=== PATIENT | male | born 1985 ===

== ENCOUNTER 2017-09-17 23:03 | Emergency (ER) | payer MEDICAID ==
[2017-09-18 00:03] LABS: BASO % 0.6 % (0.0-2.0); EOS % 0.8 % (0.0-4.0); HEMATOCRIT 49.2 % (35.0-51.0); LYMPH # 1.6 K/uL (1.0-4.3); LYMPH % 27.3 % (20.0-40.0); MEAN CELL VOLUME 97.8 fl (80.0-94.0); MEAN CORPUSCULAR HEMOGLOBIN 32.6 pg (27.0-31.0); MEAN CORPUSCULAR HGB CONC 33.3 g/dL (33.0-37.0); MEAN PLATELET VOLUME 9.8 fl (7.2-11.7); MONO # 0.5 K/uL (0.0-0.8); MONO % 8.3 % (0.0-10.0); NEUT # 3.7 K/uL (1.8-7.0); NRBC % 0.2 % (0.0-0.0); RED CELL DISTRIBUTION WIDTH 14.5 % (11.5-14.5); WHITE BLOOD COUNT 5.9 K/uL (4.8-10.8)
[2017-09-18 00:12] LABS: PARTIAL THROMBOPLASTIN TIME 31.8 Seconds (25.6-37.1)
[2017-09-18 00:13] LABS: ALB/GLOB RATIO 1.3 (1.0-2.1); ALKALINE PHOSPHATASE 81 U/L (38-126); ALT/SGPT 69 U/L (21-72); AST/SGOT 75 U/L (17-59); BILIRUBIN,TOTAL 0.3 mg/dl (0.2-1.3); BLOOD UREA NITROGEN 5 mg/dl (9-20); CARBON DIOXIDE 26 mmol/L (22-30); CHLORIDE 107 mmol/L (98-107); GFR AFRICAN-AMERICAN > 60; GLUCOSE,RANDOM 108 mg/dL (75-110); POTASSIUM 3.8 MMOL/L (3.6-5.0); SODIUM 149 mmol/l (132-148); TOTAL PROTEIN 8.1 G/DL (6.3-8.2)
[2017-09-18 00:20] LABS: ALCOHOL SERUM 443 mg/dl (0-10)
--- NOTE | 2017-09-18 00:30 | ED PDOC ---
HPI: Psych/Substance Abuse Time Seen by Provider: 09/17/17 23:08 Chief Complaint (Nursing): Substance Abuse Chief Complaint (Provider): Intoxication and Overdose History Per: EMS History/Exam Limitations: intoxication Onset/Duration Of Symptoms: Mins (just prior to arrival) Current Symptoms Are (Timing): Still Present Additional Complaint(s): 32 y/o male, brought in by both [facility] and police, with a past medial history of ADD, alcohol abuse, and heroin abuse, presents to the ED with chief complaint of alcohol intoxication and a drug overdose, with an onset just prior to arrival. According to EMS, patient was brought to the ED after taking 6 tablets of Klonopin 2mg, prescribed to him for anxiety, coupled with alcohol. Any social, surgical, or family history, as well as the review of systems, were unable to be obtained secondary to the patient's inability to answer any of the provider's questions. Of note, the patient was uncooperative and physically aggressive to staff, which resulted on the patient being placed on 4 point restraints. Past Medical History Reviewed: Historical Data, Nursing Documentation, Vital Signs Vital Signs: Last Vital Signs Temp 98.0 F 09/18/17 00:16 Pulse 107 H 09/18/17 00:16 Resp 18 09/18/17 00:16 BP 136/76 09/18/17 00:16 Pulse Ox 100 09/18/17 00:16 - Medical History PMH: Anxiety, Depression Denies: Diabetes, Hepatitis, HIV, HTN, Chronic Kidney Disease, Seizures, Sexually Transmitted Disease Other PMH: ADD - Surgical History Surgical History: No Surg Hx - Family History Family History: States: Unknown Family Hx - Social History Alcohol: > 2 Drinks/Day (alcohol abuse) Drugs: Opiates (Heroin abuse) - Immunization History Hx Tetanus Toxoid Vaccination: No Hx Influenza Vaccination: No Hx Pneumococcal Vaccination: No - Home Medications Home Medications: Ambulatory Orders Medication Instructions Recorded No Known Home Med 02/26/16 - Allergies Allergies/Adverse Reactions: Allergies Allergy/AdvReac Type Severity Reaction Status Date / Time No Known Allergies Allergy Verified 02/26/16 05:49 Review of Systems ROS Statement: Except As Marked, All Systems Reviewed And Found Negative Review Of Systems: ROS cannot be obtained secondary to pt's inabilty to answer questions. Physical Exam - Reviewed Nursing Documentation Reviewed: Yes Vital Signs Reviewed: Yes - Physical Exam Appears: Positive for: Non-toxic, No Acute Distress Head Exam: Positive for: ATRAUMATIC, NORMOCEPHALIC Skin: Positive for: Normal Color, Warm Eye Exam: Positive for: Normal appearance, EOMI, PERRL Neck: Positive for: Normal, Painless ROM, Supple Cardiovascular/Chest: Positive for: Regular Rate, Rhythm. Negative for: Murmur Respiratory: Positive for: Normal Breath Sounds. Negative for: Respiratory Distress Gastrointestinal/Abdominal: Positive for: Normal Exam, Soft. Negative for: Tenderness Back: Positive for: Normal Inspection Extremity: Positive for: Normal ROM. Negative for: Pedal Edema, Deformity Neurologic/Psych: Positive for: Alert, Other (Slurred Speech) - Laboratory Results Result Diagrams: 09/17/17 23:31 09/17/17 23:31 - ECG O2 Sat by Pulse Oximetry: 100 (RA) Pulse Ox Interpretation: Normal Medical Decision Making Medical Decision Making: Time: --23:17 Impression: -- 32 y/o male with Overdose in setting of alcohol abuse Plan: --ECG --drug screen, urine --Poison Control Consult --ED UDip --Haldol 5mg IM --Lorazepam 2mg IM --Heplock Insertion --Accucheck --Restraint: Violent or harm to staff/self --Urinalysis Reassess --time: 07:00 Patient to be signed out to Dr. Burden pending crisis evaluation. Scribe Attestation: Documented by Srini Coyle acting as a scribe for Solomon Rizvi MD. Provider Attestation: All medical record entries made by the Scribe were at my direction and personally dictated by me. I have reviewed the chart and agree that the record accurately reflects my personal performance of the history, physical exam, medical decision making, and the department course for this patient. I have also personally directed, reviewed, and agree with the discharge instructions and disposition. Disposition - Clinical Impression Clinical Impression: Substance abuse - Patient ED Disposition Is Patient to be Admitted: Transfer of Care Doctor Will See Patient In The: ED - Disposition Disposition: Transfer of Care Disposition Time: 07:00 Condition: FAIR Forms: [employer] (Croatian) Patient Signed Over To: Horace Burden
[2017-09-18] MEDS ORDERED: Sodium Chloride 0.9% 1,000 ML IV STA (00:44)
[2017-09-18 07:18] LABS: RBC URINE 1 /hpf (0-3); URINE BACTERIA RARE (<OCC); URINE BILIRUBIN NEGATIVE (NEGATIVE); URINE BLOOD NEGATIVE (NEGATIVE); URINE COLOR YELLOW (YELLOW); URINE GLUCOSE (UA) NEG (Normal); URINE KETONE 20 mg/dL (NEGATIVE); URINE LEUKOCYTE ESTERASE NEG Leu/uL (Negative); URINE PROTEIN NEGATIVE (NEGATIVE); URINE UROBILINOGEN 0.2-1.0 mg/dL (0.2-1.0); WBC URINE 3 /hpf (0-5)
--- NOTE | 2017-09-18 07:18 | ED PDOC ---
- Laboratory Results Result Diagrams: 09/17/17 23:31 09/17/17 23:31 - ECG O2 Sat by Pulse Oximetry: 100 (RA) Pulse Ox Interpretation: Normal Medical Decision Making Medical Decision Making: Time: 07:00 --Patient signed out to me by Dr. Solomon Rizvi, pending crisis evaluation. Scribe Attestation: Documented by Belinda Lilly acting as a scribe for Horace Burden MD. Provider Attestation: All medical record entries made by the Scribe were at my direction and personally dictated by me. I have reviewed the chart and agree that the record accurately reflects my personal performance of the history, physical exam, medical decision making, and the department course for this patient. I have also personally directed, reviewed, and agree with the discharge instructions and disposition. Disposition - Clinical Impression Clinical Impression: Substance abuse - POA Present On Arrival: None - Disposition Referrals: [facility] [Outside] Disposition: Routine/Home Disposition Time: 10:13 Condition: FAIR Instructions: Polysubstance Abuse (ED) Forms: [employer] ([place]ian)
[2017-09-18 08:35] VITALS: RESP 16; TEMP 97.6
[2017-09-18] MEDS ORDERED: Multivitamin (MVI) 10 ML, Thiamine 100 MG in Dextrose 5%/0.45% NS 1,000 ML IV ONE (08:48)
[2017-09-18] MEDS ORDERED: NS IV ONE (09:00)
[2017-09-18] MEDS ORDERED: DEXTROSE IV ONE (09:00)
[2017-09-18] MEDS ORDERED: MULTIVITAMIN IV ONE (09:00)
[2017-09-18] MEDS ORDERED: THIAMINE IV ONE (09:00)
[2017-09-18 10:53] VITALS: BP 110/53; PULSE 109; O2SAT 95
--- NOTE | 2017-09-18 11:12 | CARD ---
APPROVED REPORT EKG Measurement Heart [id number] <Conclusion> Sinus tachycardia Otherwise normal ECG
== END 2017-09-18 10:45 | disposition home or self-care (01) ==
LOC: H.ER 23:03
DX: F11.10 Opioid abuse, uncomplicated (principal); F10.129 Alcohol abuse with intoxication, unspecified; F32.9 Major depressive disorder, single episode, unspecified; F41.9 Anxiety disorder, unspecified
CPT/HCPCS: 80053; 80320; 80324; 80329; 80345; 80346; 80349; 80353; 80358; 80361; 81003; 82948; 83992; 85025; 85610; 85730; 93005; 96361; 96372; 96374; 96375; 99285; J1630; J2060; J3411; J7040; J7042